=== PATIENT | male | born 1940 | race Caucasian/White ===

== ENCOUNTER 2018-02-22 07:28 | Inpatient (IN) | payer MEDICARE, OTHER ==
[~2018-02-22] VITALS: Ht 177.8 cm; Wt 82.6 kg
[~2018-02-22 07:28] MED LIST: ASPI81TA94 PO; AZIT-17 PO; CLIN-75 PO; CLIN300C99 PO; SILD50TA PO; TERB250T74 PO; TRIA15CR40 TP; [UNRECOGNIZED DRUG - CODE] PO; [UNRECOGNIZED DRUG - CODE] PO
--- NOTE | 2018-02-22 07:32 | ER Report ---
History and Physical Time Seen By MD: 07:31 HPI/ROS CHIEF COMPLAINT: Rapid Heart Rate HISTORY OF PRESENT ILLNESS: Patient is a 77-year-old male presents to the emergency department after waking up this morning with a rapid irregular heartbeat. He denies any chest pain but does admit to some shortness of breath. The patient is postop from a left knee surgery this past Saturday. He is currently on Coumadin but does not know his current INR. Patient apparently has had paroxysmal atrial fibrillation in the past. He has been seen by cardiology here in [place] but was cleared for surgery in as he was not in atrial fibrillation at that time. Patient denies any fevers or chills. He denies any abdominal pain. Reports no nausea vomiting or diarrhea. Patient denies ever requiring cardioversion in the past. REVIEW OF SYSTEMS: Constitutional: No fever, no chills. Eyes: No discharge. ENT: No sore throat. Cardiovascular: No chest pain, racing heart and palpitations Respiratory: Mild shortness of breath Gastrointestinal: No abdominal pain, no vomiting. Genitourinary: No hematuria. Musculoskeletal: No back pain. Skin: No rashes. Neurological: No headache. Allergies: Coded Allergies: Penicillins (Verified Allergy, Intermediate, UNKNOWN, 02/22/18) Home Meds Reported Medications [super joint complex] No Conflict Check, PO DAILY 02/22/18 Calcium Carbonate (CALCIUM) 500 Mg Tablet, PO DAILY 02/22/18 Biotin (BIOTIN) 1 Mg Capsule, PO DAILY 02/22/18 Cholecalciferol (Vitamin D3) (VITAMIN D3) 1,000 Unit Tablet, 1000 UNIT PO DAILY, TAB 02/22/18 Ascorbic Acid (VITAMIN C) 500 Mg Tablet, 500 MG PO, TAB 02/22/18 Warfarin Sodium (COUMADIN) 1 Mg Tablet, PO QDAY 02/22/18 Oxycodone Hcl/Acetaminophen (OXYCODONE-ACETAMINOPHEN 5-325) 1 Each Tablet, 1 EACH PO Q4H PRN for PAIN, TAB 02/22/18 Lysine HCl (l-Lysine) 1,000 Mg Tablet, 0.5 TAB PO QDAY 10/05/15 Proline (L-PROLINE) 5 Gm Crystals, 1 TAB PO QDAY 10/05/15 Aspirin (ASPIRIN) 81 Mg Tab.chew, 81 MG PO QDAY, TAB.CHEW 10/05/15 Triamcinolone Acetonide 0.1% Cr 15 Gm Tube (TRIAMCINOLONE ACETONIDE 0.1% CREAM) 15 Gm Cream..g., 15 GM TP BID, TUBE 10/05/15 Sildenafil Citrate (VIAGRA) 50 Mg Tablet, 50 MG PO 10/26/11 Discontinued Reported Medications Clindamycin Hcl (CLINDAMYCIN HCL) 150 Mg Capsule, 4 CAP PO TID PRN for SEE COMMENT, CAPSULE take 4 tabs before dentist appointment 10/05/15 Discontinued Scripts Clindamycin Hcl (CLINDAMYCIN HCL) 300 Mg Capsule, 300 MG PO TID, #21 CAPSULE Prov:MARIFER MOMIN MD 01/16/17 Past Medical/Surgical History Past medical history for CVA in 2012, past surgical history for cataract extraction, tonsillectomy, hernia repair, left arm fracture repair, right knee replacement, recent history of left knee surgery, history of paroxysmal atrial fibrillation Smoking Status: Never Smoker Constitutional Vital Sign - Last 24 Hours 02/22/18 02/22/18 02/22/18 02/22/18 07:30 07:31 07:35 07:35 Temp 98.1 Pulse 130 110 Resp 12 14 B/P (MAP) 139/88 139/88 (105) Pulse Ox 88 93 O2 Delivery Room Air O2 Flow Rate 1.0 02/22/18 02/22/18 02/22/18 02/22/18 07:40 07:45 07:50 07:55 Pulse 105 96 94 70 Resp 20 20 19 14 Pulse Ox 94 94 95 93 02/22/18 02/22/18 02/22/18 02/22/18 08:00 08:05 08:10 08:15 Pulse 73 77 78 78 Resp 8 10 12 B/P (MAP) 102/73 (83) Pulse Ox 94 94 94 92 02/22/18 02/22/18 08:20 08:25 Pulse 83 76 Resp 12 10 Pulse Ox 93 94 Physical Exam General/Constitutional: Patient is awake, alert, nontoxic and in no acute respiratory distress. Head: Normocephalic and atraumatic. Eyes: Conjunctival clear, Pupils are equal and reactive to light. Extraocular muscles are intact and symmetrical. Sclera are clear and anicteric. Ears:External canals are clear. Tympanic membranes are clear with normal landmarks and light reflex. Nares: No rhinorrhea or bleeding. Turbinates are pink and moist. Oropharyngeal: Mucous membranes are moist. There is no pharyngeal erythema or exudate. There are no palatal petechiae. Uvula is midline and symmetrical. Neck: Supple, no adenopathy. Cardiovascular: Heart is tachycardic and irregularly irregular Pulmonary: Lungs are clear to auscultation bilaterally. There are no wheezes, rales, or rhonchi. Chest rise is symmetrical Abdomen: Soft, nontender, no guarding or peritoneal signs. Extremities: No gross deformities, No peripheral cyanosis. Able to move all 4 extremities. Neuro: Alert and oriented X3, Skin: No rashes, skin is warm dry and well perfused. Medical Decision Making Data Points Result Diagram: 02/22/18 0742 02/22/18 0742 Laboratory Hematology Test 02/22/18 07:42 Red Blood Count 4.57 M/uL (4.00-5.60) Mean Corpuscular Volume 91.6 fL (80.0-96.0) Mean Corpuscular Hemoglobin 30.5 pg (26.0-33.0) Mean Corpuscular Hemoglobin Concent 33.3 g/dL (32.0-36.0) Red Cell Distribution Width 14.0 % (11.5-14.5) Mean Platelet Volume 7.9 fL (7.2-11.1) Neutrophils (%) (Auto) 52.6 % (39.4-72.5) Lymphocytes (%) (Auto) 37.5 % (17.6-49.6) Monocytes (%) (Auto) 7.9 % (4.1-12.4) Eosinophils (%) (Auto) 1.7 % (0.4-6.7) Basophils (%) (Auto) 0.3 % (0.3-1.4) Nucleated RBC Relative Count (auto) 0.1 /100WBC Neutrophils # (Auto) 6.0 K/uL (2.0-7.4) Lymphocytes # (Auto) 4.3 K/uL (1.3-3.6) Monocytes # (Auto) 0.9 K/uL (0.3-1.0) Eosinophils # (Auto) 0.2 K/uL (0.0-0.5) Basophils # (Auto) 0.0 K/uL (0.0-0.1) Nucleated RBC Absolute Count (auto) 0.01 K/uL Prothrombin Time 20.0 seconds (12.0-14.4) Prothromb Time International Ratio 1.68 Activated Partial Thromboplast Time 45 seconds (23-35) Sodium Level 138 mmol/L (137-145) Potassium Level 4.0 mmol/L (3.5-5.0) Chloride Level 99 mmol/L (98-107) Carbon Dioxide Level 28 mmol/L (22-30) Blood Urea Nitrogen 15 mg/dl (9-21) Creatinine 0.80 mg/dl (0.66-1.25) Glomerular Filtration Rate Calc > 60.0 Random Glucose 118 mg/dl (75-110) Calcium Level 9.7 mg/dl (8.4-10.2) Total Bilirubin 0.9 mg/dl (0.2-1.3) Aspartate Amino Transf (AST/SGOT) 30 U/L (0-35) Alanine Aminotransferase (ALT/SGPT) 22 U/L (0-56) Alkaline Phosphatase 73 U/L (0-126) Troponin I < 0.012 ng/ml B-Type Natriuretic Peptide 340 pg/ml (0-100) Total Protein 7.3 g/dl (6.3-8.2) Albumin 3.7 g/dl (3.5-5.0) Chemistry Test 02/22/18 07:42 White Blood Count 11.3 k/uL (4.5-11.0) Red Blood Count 4.57 M/uL (4.00-5.60) Hemoglobin 14.0 g/dL (14.0-18.0) Hematocrit 41.9 % (42.0-52.0) Mean Corpuscular Volume 91.6 fL (80.0-96.0) Mean Corpuscular Hemoglobin 30.5 pg (26.0-33.0) Mean Corpuscular Hemoglobin Concent 33.3 g/dL (32.0-36.0) Red Cell Distribution Width 14.0 % (11.5-14.5) Platelet Count 215 K/uL (150-450) Mean Platelet Volume 7.9 fL (7.2-11.1) Neutrophils (%) (Auto) 52.6 % (39.4-72.5) Lymphocytes (%) (Auto) 37.5 % (17.6-49.6) Monocytes (%) (Auto) 7.9 % (4.1-12.4) Eosinophils (%) (Auto) 1.7 % (0.4-6.7) Basophils (%) (Auto) 0.3 % (0.3-1.4) Nucleated RBC Relative Count (auto) 0.1 /100WBC Neutrophils # (Auto) 6.0 K/uL (2.0-7.4) Lymphocytes # (Auto) 4.3 K/uL (1.3-3.6) Monocytes # (Auto) 0.9 K/uL (0.3-1.0) Eosinophils # (Auto) 0.2 K/uL (0.0-0.5) Basophils # (Auto) 0.0 K/uL (0.0-0.1) Nucleated RBC Absolute Count (auto) 0.01 K/uL Prothrombin Time 20.0 seconds (12.0-14.4) Prothromb Time International Ratio 1.68 Activated Partial Thromboplast Time 45 seconds (23-35) Glomerular Filtration Rate Calc > 60.0 Calcium Level 9.7 mg/dl (8.4-10.2) Total Bilirubin 0.9 mg/dl (0.2-1.3) Aspartate Amino Transf (AST/SGOT) 30 U/L (0-35) Alanine Aminotransferase (ALT/SGPT) 22 U/L (0-56) Alkaline Phosphatase 73 U/L (0-126) Troponin I < 0.012 ng/ml B-Type Natriuretic Peptide 340 pg/ml (0-100) Total Protein 7.3 g/dl (6.3-8.2) Albumin 3.7 g/dl (3.5-5.0) Coagulation Test 02/22/18 07:42 Prothrombin Time 20.0 seconds Prothromb Time International Ratio 1.68 Activated Partial Thromboplast Time 45 seconds EKG/Imaging EKG Interpretation EKG shows atrial fibrillation with a ventricular rate of [address] segment or T-wave abnormalities are noted. Monitor Interpretation: Atrial Fibrillation Imaging FACILITY: [facility] - [place] PATIENT NAME: Steven Miller : 1940 MR: [id number] V: [id number] EXAM DATE: ORDERING PHYSICIAN: REESE DELUNA TECHNOLOGIST: Location: [facility] Patient: Steven Miller : 1940 Visit/Account:[id number] Date of Sevice: 02/22/2018 Technique: CHEST SINGLE AP HISTORY: Chest pain Comparison studies: None FINDINGS: No acute airspace consolidation. No pleural effusion. Atherosclerotic changes overlie the thoracic aorta. The cardiac silhouette is unremarkable. IMPRESSION: 1. No acute cardiopulmonary process Report Dictated By: Buddy Tiwari DO at 02/22/2018 8:16 AM Report E-Signed By: Buddy Tiwari DO at 02/22/2018 8:18 AM WSN:[email or web address] ED Course/Re-evaluation Clinical Indication for ER IV: IV Access ED Course 02/22/2018 7:42:41 am patient with parents old atrial fibrillation. Plan at this time will be to place an IV. We will bolus the patient will of diltiazem and then placed on a drip at 5 mg/h while we complete the cardiac workup. 02/22/2018 7:56:49 am patient received 20 mg of IV diltiazem and is currently on a drip at 5 mg per hour. Ventricular rate slowed to 70 bpm the monitor is still showing atrial fibrillation we'll continue to monitor 02/22/2018 8:14:03 am patient remains in atrial fibrillation with a normal rate at this time. INR comes back at 1.68. I am still awaiting troponin values. Plan at this time will be to give a 1 m/kg subcutaneous dose of Lovenox as patient is currently subtherapeutic with his anticoagulation. Decision to Disposition Date: Feb 22, 2018 Decision to Disposition Time: 08:47 Depart Departure Latest Vital Signs Vital Signs Date Time Temp Pulse Resp B/P (MAP) Pulse Ox O2 Delivery O2 Flow Rate FiO2 02/22/18 08:25 76 10 94 02/22/18 08:00 102/73 (83) 02/22/18 07:35 1.0 02/22/18 07:30 98.1 Room Air Impression: Primary Impression: PAROXYSMAL ATRIAL FIBRILLATION Condition: Condition Unchanged Disposition: Admitted from ER (to Med/surg tele under dr meza) Referrals: MARIFER MOMIN MD (PCP) REESE DELUNA MD Feb 22, 2018 07:32
[2018-02-22] MEDS ORDERED: ASPIRIN 81 MG CHEW PO ONE (07:35)
[2018-02-22] MEDS ORDERED: DILTIAZEM HCL* 100 MG ADDVIAL 100 MG in NS(*) 0.9% 100 ML ADDVANT BAG 100 ML IV SCH (07:45)
[2018-02-22] MEDS ORDERED: DILTIAZEM 5 MG/ML 5ML IVPUSH IVP ONE (07:45)
[2018-02-22 07:55] LABS: PLATELET COUNT, AUTOMATED 215 K/uL (150-450)
[2018-02-22 08:02] LABS: INR 1.68
[2018-02-22] MEDS ORDERED: CHOL10005 PO (08:05)
[2018-02-22] MEDS ORDERED: [UNRECOGNIZED DRUG - OTHER] PO (08:05)
[2018-02-22] MEDS ORDERED: ASCO-182 PO (08:05)
[2018-02-22] MEDS ORDERED: CALC500T6 PO (08:05)
[2018-02-22] MEDS ORDERED: BIOT1CAP PO (08:05)
[2018-02-22] MEDS ORDERED: OXYC-373 PO (08:05)
[2018-02-22] MEDS ORDERED: WARF1TAB56 PO (08:05)
[2018-02-22] MEDS ORDERED: ENOXAPARIN 100 MG/ML SYR SC ONE (08:15)
--- NOTE | 2018-02-22 08:22 | RADIOLOGY IMAGING REPORT ---
FACILITY: [facility] PATIENT NAME: Steven Miller : 1940 MR: [id number] V: [id number] EXAM DATE: ORDERING PHYSICIAN: REESE DELUNA TECHNOLOGIST: Location: [facility] - [place] Patient: Steven Miller : 1940 Visit/Account:[id number] Date of Sevice: 02/22/2018 Technique: CHEST SINGLE AP HISTORY: Chest pain Comparison studies: None FINDINGS: No acute airspace consolidation. No pleural effusion. Atherosclerotic changes overlie the t horacic aorta. The cardiac silhouette is unremarkable. IMPRESSION: 1. No acute cardiopulmonary process Report Dictated By: Buddy Tiwari DO at 02/22/2018 8:16 AM Report E-Signed By: Buddy Tiwari DO at 02/22/2018 8:18 AM WSN:[id number]
[2018-02-22 10:20] VITALS: BP 105/68
[2018-02-22] MEDS ORDERED: NS(*) 0.9% 1000 ML BAG 1,000 ML IV PRN (11:05)
[2018-02-22] MEDS ORDERED: NS(*) 0.9% 1000 ML BAG 1,000 ML ONE (11:13)
[2018-02-22] MEDS ORDERED: ACETAMINOPHEN 500 MG TAB PO PRN (11:25)
--- NOTE | 2018-02-22 11:51 | History & Physical ---
History of Present Illness History of Present Illness 77yo male with a h/o TIA and recent diagnosis of paroxysmal atrial fibrillation who came to the ER for a fast heart rate. On 02/18 (4 days ago) he had a TKA. He was discharged home on 02/20. During the pre-op workup he was found to be in atrial fibrillation. He saw Dr. Kaye (Cardiology), but then the patient was in a NSR. Surgery was not delayed, but the patient was to start Eliquis after surgery. The patient was started on Warfarin instead, per Ortho's preference. The patient was doing well at home, but this morning at 0400 he felt his heart "fluttering" and he felt some SOB. No chest pain/di aphoresis/nausea. In the ER, he was noted to be in atrial fibrillation with RVR. He was bolused IV diltiazem and started on a drip at 5mg/hour. Currently, the patient feels well. History Problems: (1) Status post knee replacement Status: Acute (2) Atrial fibrillation Status: Acute (3) CVA (cerebral vascular accident) Status: Chronic Home Meds Reported Medications [super joint complex] No Conflict Check, PO DAILY 02/22/18 Calcium Carbonate (CALCIUM) 500 Mg Tablet, PO DAILY 02/22/18 Biotin (BIOTIN) 1 Mg Capsule, PO DAILY 02/22/18 Cholecalciferol (Vitamin D3) (VITAMIN D3) 1,000 Unit Tablet, 1000 UNIT PO DAILY, TAB 02/22/18 Ascorbic Acid (VITAMIN C) 500 Mg Tablet, 500 MG PO, TAB 02/22/18 Warfarin Sodium (COUMADIN) 1 Mg Tablet, PO QDAY 02/22/18 Oxycodone Hcl/Acetaminophen (OXYCODONE-ACETAMINOPHEN 5-325) 1 Each Tablet, 1 EACH PO Q4H PRN for PAIN, TAB 02/22/18 Lysine HCl (l-Lysine) 1,000 Mg Tablet, 0.5 TAB PO QDAY 10/05/15 Proline (L-PROLINE) 5 Gm Crystals, 1 TAB PO QDAY 10/05/15 Aspirin (ASPIRIN) 81 Mg Tab.chew, 81 MG PO QDAY, TAB.CHEW 10/05/15 Discontinued Reported Medications Clindamycin Hcl (CLINDAMYCIN HCL) 150 Mg Capsule, 4 CAP PO TID PRN for SEE COMMENT, CAPSULE take 4 tabs before dentist appointment 10/05/15 Triamcinolone Acetonide 0.1% Cr 15 Gm Tube (TRIAMCINOLONE ACETONIDE 0.1% CREAM) 15 Gm Cream..g., 15 GM TP BID, TUBE 10/05/15 Sildenafil Citrate (VIAGRA) 50 Mg Tablet, 50 MG PO 10/26/11 Discontinued Scripts Clindamycin Hcl (CLINDAMYCIN HCL) 300 Mg Capsule, 300 MG PO TID, #21 CAPSULE Prov:MARIFER MOMIN MD 01/16/17 Allergies: Coded Allergies: Penicillins (Verified Allergy, Intermediate, UNKNOWN, 02/22/18) Other Social/Family Hx Quit smoking 40years ago. He has a 10pk yr hx. Rare alcohol use. . Hx Smoking: Yes Smoking Status: Former Smoker Exposure to Second Hand Smoke?: Yes When Quit Tobacco?: quit 45 yrs ago, 1PPD Caffeine Intake: Soda Caffeine/Cups Per Day: rarely Hx Alcohol Use: Yes (Very rarely) Alcohol Used: Beer Hx Substance Use Disorder: No Social Drug Use: Never History of IV Drug Use: No Review of Systems All Systems Reviewed/Normal: Yes, Except as Noted Exam Vital Signs Vital Signs Date Time Temp Pulse Resp B/P (MAP) Pulse Ox O2 Delivery O2 Flow Rate FiO2 02/22/18 10:20 96 Nasal Cannula 1.0 02/22/18 10:20 98.4 83 16 105/68 (80) General Appearance: Alert, Awake, No Acute Distress Eyes: PERRLA ENT: Moist Mucous Membranes (Mild erythema in post pharynx) Cardiovascular: Other (Irreg, irreg, no m/r/g) Respiratory: Clear to Auscultation GI: Abd Soft and Non-Tender Extremities: No Edema Integumentary: No Jaundice, No Cyanosis Medical Decision Making Data Points Result Diagram: 02/22/18 0742 02/22/18 0742 Item Value Date Time Total Bilirubin 0.9 mg/dl 02/22/18 0742 Aspartate Amino Transf (AST/SGOT) 30 U/L 02/22/18 0742 Alanine Aminotransferase (ALT/SGPT) 22 U/L 02/22/18 0742 Alkaline Phosphatase 73 U/L 02/22/18 0742 B-Type Natriuretic Peptide 340 pg/ml H 02/22/18 0742 Troponin I < 0.012 ng/ml 02/22/18 0742 EKG / Imaging EKG Interpretation ECG haven't been loaded onto the computer system yet. Imaging CXR - 1. No acute cardiopulmonary process Assessment and Plan Problems: (1) Atrial fibrillation Status: Acute Assessment & Plan: He presented with a few hours of feeling like his heart was going fast and mild SOB. He was found to have atrial fibrillation a couple of weeks ago by a pre-op ECG. His rate was 104 bpm and he was asymptomatic. He converted out by the time he saw Cardiology. The plan was for him to get an outpatient echo after his TKA, stroke prophylaxis medication and f/u in early April. He is now rate controlled on a diltiazem drip at 5mg/hour. Will switch to oral diltiazem 180mg a day, get an echo, check TSH and continue warfarin. He was given a 1 mg/kg dosing of Lovenox in the ER. Will switch to 40mg a day because his INR is 1.68 and concerned about bleeding risk from recent surgery. Check daily INR. (2) Status post knee replacement Status: Acute Assessment & Plan: Doing well. Surgery was on 02/18. DVT prophylaxis as above. Celebrex, APAP, and oxycodone for pain control. (3) CVA (cerebral vascular accident) Status: Chronic Assessment & Plan: Continue ASA 81mg a day. Copies to: MARNIE HDEZ MD; VALENTINA MORALES MD; DELORES KAYE MD ; Venous Thromboembolism Antithrombotics Is Pt On Any Antithrombotics?: Yes Exam Sepsis Risk: No Definite Risk Problem Qualifiers (1) Atrial fibrillation: Atrial fibrillation type: paroxysmal Qualified Codes: I48.0 - Paroxysmal atrial fibrillation PABLO KENNEDY MD Feb 22, 2018 11:51
--- NOTE | 2018-02-22 11:54 | EKG ---
FACILITY: [facility] [place] PATIENT NAME: AURORA MAURICE : [id number] MR: [id number] V: [id number] EXAM DATE: ORDERING PHYSICIAN: REESE DELUNA TECHNOLOGIST: CRISTINA Valentine Reason : CARDIAC Blood Pressure : / mmHG Vent. Rate : 146 BPM Atrial Rate : 202 BPM P-R Int : 000 ms QRS Dur : 074 ms QT Int : 278 ms P-R-T Axes : 000 047 015 degrees QTc Int : 433 ms Atrial fibrillation with rapid ventricular response Nonspecific ST abnormality Abnormal ECG No previous ECGs available Confirmed by PABLO KENNEDY ([id number]) on 02/22/2018 3:41:51 PM Referred By: MIKIE Confirmed By:PABLO KENNEDY
[2018-02-22 11:56] VITALS: BP 103/75
[2018-02-22] MEDS ORDERED: DILTIAZEM CD 180 MG CAPCR PO SCH (12:00)
[2018-02-22 12:19] VITALS: Ht 177.8 cm; Wt 82.6 kg
[2018-02-22] MEDS ORDERED: WARFARIN SOD 5 MG TAB PO SCH (13:00)
[2018-02-22] MEDS ORDERED: CHOL400T55 PO (14:36)
[2018-02-22] MEDS ORDERED: MAGN100T PO (14:36)
[2018-02-22] MEDS ORDERED: WARF-1 PO (14:36)
[2018-02-22 15:17] VITALS: BP 97/63
[2018-02-22] MEDS: oxyCODONE HCL 5 MG CAP PO PRN ×2 (15:21→23:48)
[2018-02-22] MEDS: CELECOXIB 200 MG CAP PO PRN (17:39)
[2018-02-22 19:43] VITALS: BP 110/87
[2018-02-22 23:39] VITALS: BP 108/77
[2018-02-23 04:11] VITALS: BP 123/72
[2018-02-23 05:53] LABS: INR 2.17
[2018-02-23 06:14] LABS: PLATELET COUNT, AUTOMATED 217 K/uL (150-450)
[2018-02-23] MEDS ORDERED: DILT120C18 PO (06:51)
--- NOTE | 2018-02-23 07:00 | Hospitalist Depart ---
Discharge Summary Reason for Hosp/Final Diag: (1) Atrial fibrillation Status: Acute Hospital Course & Plan: He presented with a few hours of feeling like his heart was going fast and mild SOB. He was found to have atrial fibrillation a couple of weeks ago by a pre-op ECG. His rate was 104 bpm and he was asymptomatic. He converted out by the time he saw Cardiology. The plan was for him to get an outpatient echo after his TKA, stroke prophylaxis medication and f/u in early April. He was placed on a diltiazem drip and now rate controlled on a diltiazem orally. His echo showed an EF of about 52% without any other gross abnormalities. BNP is a bit elevated, but likely related to the atrial fibrillation with RVR. However, there may be an element of pulmonary congestion related to IVF from the recent surgery. Lungs are clear by exam and CXR. TSH is pending. He is to follow up as scheduled with Cardiology and Orthopedics. Therapeutic on warfarin. INR tomorrow. He should follow up with his PCP in 1-2 weeks to check his HR and BP. (2) Status post knee replacement Status: Acute Hospital Course & Plan: Doing well. Surgery was on 02/18. DVT prophylaxis as above. Continue Percocet for pain. (3) CVA (cerebral vascular accident) Status: Chronic Hospital Course & Plan: Continue ASA 81mg a day. Departure Weight (Pounds): 182 Result Diagram: 02/23/18 0502/23/18 05 Item Value Date Time White Blood Count 11.3 k/uL H 02/22/18 0742 White Blood Count 7.8 k/uL 02/23/18 0520 Hemoglobin 14.0 g/dL 02/22/18 0742 Hemoglobin 13.2 g/dL L 02/23/18 0520 Platelet Count 215 K/uL 02/22/18 0742 Platelet Count 217 K/uL 02/23/18 0520 Prothromb Time International Ratio 1.68 02/22/18 0742 Prothromb Time International Ratio 2.17 02/23/18 0520 B-Type Natriuretic Peptide 338 pg/ml H 02/23/18 0520 B-Type Natriuretic Peptide 340 pg/ml H 02/22/18 0742 Total Bilirubin 0.9 mg/dl 02/22/18 0742 Aspartate Amino Transf (AST/SGOT) 30 U/L 02/22/18 0742 Alanine Aminotransferase (ALT/SGPT) 22 U/L 02/22/18 0742 Alkaline Phosphatase 73 U/L 02/22/18 0742 Alkaline Phosphatase 57 U/L 02/23/18 0520 Alanine Aminotransferase (ALT/SGPT) 17 U/L 02/23/18 0520 Aspartate Amino Transf (AST/SGOT) 22 U/L 02/23/18 0520 Total Bilirubin 0.6 mg/dl 02/23/18 0520 Troponin I < 0.012 ng/ml 02/23/18 0520 Troponin I < 0.012 ng/ml 02/22/18 0742 Blood Urea Nitrogen 15 mg/dl 02/22/18 0742 Creatinine 0.80 mg/dl 02/22/18 0742 Blood Urea Nitrogen 20 mg/dl 02/23/18 0520 Creatinine 0.70 mg/dl 02/23/18 0520 Imaging 02/22/18 Echo - See official results 02/22/18 CXR - 1. No acute cardiopulmonary process EKG Vent. Rate : 146 BPM Atrial Rate : 202 BPM P-R Int : 000 ms QRS Dur : 074 ms QT Int : 278 ms P-R-T Axes : 000 047 015 degrees QTc Int : 433 ms Atrial fibrillation with rapid ventricular response Nonspecific ST abnormality Abnormal ECG No previous ECGs available Confirmed by PABLO KENNEDY ([id number]) on 02/22/2018 3:41:51 PM Condition: Improved Discharge: Home Discharge Instructions Home Meds Active Scripts Magnesium Hydroxide (MILK OF MAGNESIA) 400 Mg/5 Ml Oral.susp, 400 MG PO Q8H PRN for CONSTIPATION for 1 Day, BOTTLE Prov:PABLO KENNEDY MD 02/23/18 Docusate Sodium (COLACE) 100 Mg Capsule, 100 MG PO BID for constipation for 1 Day, CAPSULE Take while on pain medication Prov:PABLO KENNEDY MD 02/23/18 Polyethylene Glycol 3350 (MIRALAX) 17 Gm Powd.pack, 17 GM PO DAILY for Constipation for 1 Day, PKT Take while on pain medication Prov:PABLO KENNEDY MD 02/23/18 Diltiazem Hcl (DILTIAZEM 24HR CD) 120 Mg Cap.er.24h, 120 MG PO QDAY, #30 Prov:PABLO KENNEDY MD 02/23/18 Reported Medications Magnesium Amino Acid Chelate (MAGNESIUM) 100 Mg Tablet, 200 MG PO DAILY 02/22/18 Warfarin Sodium (COUMADIN) 5 Mg Tablet, 5 MG PO QDAY 02/22/18 Cholecalciferol (Vitamin D3) (VITAMIN D) 400 Unit Tablet, 1 TAB PO DAILY 02/22/18 [super joint complex] 1 TAB No Conflict Check, PO DAILY 02/22/18 Calcium Carbonate (CALCIUM) 500 Mg Tablet, 1 TAB PO DAILY 02/22/18 Biotin (BIOTIN) 1 Mg Capsule, 51879 MCG PO DAILY 02/22/18 Ascorbic Acid (VITAMIN C) 500 Mg Tablet, 1000 MG PO DAILY, TAB 02/22/18 Oxycodone Hcl/Acetaminophen (OXYCODONE-ACETAMINOPHEN 5-325) 1 Each Tablet, 1 EACH PO Q4H PRN for PAIN, TAB 02/22/18 Lysine HCl (l-Lysine) Unknown Strength Tablet, PO QDAY 10/05/15 Proline (L-PROLINE) 5 Gm Crystals, 1 TAB PO QDAY 10/05/15 Aspirin (ASPIRIN) 81 Mg Tab.chew, 81 MG PO QDAY, TAB.CHEW 10/05/15 Discontinued Reported Medications Clindamycin Hcl (CLINDAMYCIN HCL) 150 Mg Capsule, 4 CAP PO TID PRN for SEE COMMENT, CAPSULE take 4 tabs before dentist appointment 10/05/15 Triamcinolone Acetonide 0.1% Cr 15 Gm Tube (TRIAMCINOLONE ACETONIDE 0.1% CREAM) 15 Gm Cream..g., 15 GM TP BID, TUBE 10/05/15 Sildenafil Citrate (VIAGRA) 50 Mg Tablet, 50 MG PO 10/26/11 Discontinued Scripts Clindamycin Hcl (CLINDAMYCIN HCL) 300 Mg Capsule, 300 MG PO TID, #21 CAPSULE Prov:MARIFER MOMIN MD 01/16/17 Diet: Regular Activity: As Tolerated Special Instructions: Get an INR on 02/24. Follow up with your PCP in 1-2 weeks to check heart rate and blood pressure Call your PCP if you are getting light headed with standing up. Follow up with Orthopedics and Cardiology as scheduled. Copies to: MARIFER MOMIN MD; MARNIE HDEZ MD; VALENTINA MORALES MD; DELORES KAYE MD ; Venous Thromboembolism Antithrombotics Is Pt On Any Antithrombotics?: Yes Problem Qualifiers (1) Atrial fibrillation: Atrial fibrillation type: paroxysmal Qualified Codes: I48.0 - Paroxysmal atrial fibrillation PABLO KENNEDY MD Feb 23, 2018 07:00
[2018-02-23] MEDS: CELECOXIB 200 MG CAP PO PRN (07:10)
[2018-02-23] MEDS ORDERED: BISACODYL 10 MG SUPP PR PRN (07:40)
[2018-02-23] MEDS ORDERED: MAGNESIUM HYDROXIDE* 30ML UDCP PO PRN (07:40)
[2018-02-23] MEDS ORDERED: MOM PO (07:47)
[2018-02-23] MEDS ORDERED: DOCU-416 PO (07:47)
[2018-02-23] MEDS ORDERED: POLY17PO25 PO (07:47)
[2018-02-23 09:00] VITALS: BP 112/74
[2018-02-23] MEDS ORDERED: ENOXAPARIN 40 MG/0.4ML SYR SC SCH (09:00)
[2018-02-23] MEDS ORDERED: ASPIRIN 81 MG CHEW CHEW SCH (09:00)
[2018-02-23] MEDS ORDERED: DOCUSATE SODIUM 100 MG CAP PO SCH (09:00)
[2018-02-23] MEDS ORDERED: DILTIAZEM CD 120 MG CAPCR PO SCH (09:00)
[2018-02-23] MEDS ORDERED: POLYETHYLENE GLYCOL 17 GM PKT PO SCH (09:00)
== END 2018-02-23 12:10 | disposition home or self-care (01) | DRG 310 ==
LOC: ER 07:54 → MED 09:07
PROVIDERS: ADMIT Internal Medicine; ATTEND Internal Medicine
DX: I48.0 Paroxysmal atrial fibrillation (principal); Z86.73 Personal history of transient ischemic attack (TIA), and cerebral infarction without residual deficits; Z96.651 Presence of right artificial knee joint; Z87.891 Personal history of nicotine dependence
CPT/HCPCS: 36415; 71045; 82040; 82247; 82310; 82374; 82435; 82565; 82947; 83880; 84075; 84132; 84155; 84295; 84443; 84450; 84460; 84484; 84520; 85025; 85610; 85730; 93005; 93306; 96365; 96366; 96372; 99285; J1650; J3490; J7050

== ENCOUNTER → 2018-02-24 | Outpatient (CLI) | payer MEDICARE, OTHER ==
[2018-02-22 12:19] VITALS: BMI 26.1
[~2018-02-24] MED LIST changes: +ASCO-182 PO; +BIOT1CAP PO; +CALC500T6 PO; +CHOL10005 PO; +CHOL400T55 PO; +DILT120C18 PO; +DOCU-416 PO; +MAGN100T PO; +MOM PO; +OXYC-373 PO; +POLY17PO25 PO; +WARF-1 PO; +WARF1TAB56 PO; +[UNRECOGNIZED DRUG - OTHER] PO
[2018-02-24 10:18] LABS: INR 2.65
== END ==
LOC: LAB 09:44
PROVIDERS: ATTEND Physician Assistant Surgical
DX: Z51.81 Encounter for therapeutic drug level monitoring (principal); Z79.01 Long term (current) use of anticoagulants; Z96.652 Presence of left artificial knee joint
CPT/HCPCS: 36415; 85610

== ENCOUNTER 2018-03-13 23:37 | Emergency (ER) | payer MEDICARE, OTHER ==
[2018-02-22 12:19] VITALS: Wt 82.6 kg
[2018-03-13 23:36] VITALS: BP 139/87
[~2018-03-13 23:37] MED LIST changes: -ENOX80DI8 SQ; -HYDR2TAB74 PO; -TRAM-420 PO
[2018-03-13] MEDS ORDERED: TRAM-420 PO (23:41)
[2018-03-13] MEDS ORDERED: EMS NS 0.9%(*) 1000 ML BAG 1,000 ML IV ONE (23:45)
--- NOTE | 2018-03-13 23:52 | ER Report ---
History and Physical Time Seen By : 23:51 HPI/ROS CHIEF COMPLAINT: knee pain HISTORY OF PRESENT ILLNESS: This is a 77 year old male. He had a knee replacement surgery about [address] Arriaga at [facility] in [place]. He has been weaning down from Oxycodone and on to Ultram recently. Has been doing okay with physical therapy, with occasional pain. He is on Warfarin for his atrial fibrillation. He had sudden onset of knee pain tonight. Rated 10 on a 1-10 scale. Nothing improves it and he did try the Ultram. Seems to be mainly on the medial side. Has radiation to his hip. No fevers noted. He and his did notice some increased redness in the knee. Allergies: Coded Allergies: Penicillins (Verified Allergy, Intermediate, UNKNOWN, 03/13/18) Home Meds Active Scripts Hydromorphone Hcl (DILAUDID) 2 Mg Tablet, 2 MG PO Q4H PRN for PAIN, #10 TAB 0 Refills Prov:RAMON ORTIZ MD 03/14/18 Enoxaparin Sodium (LOVENOX) 80 Mg/0.8 Ml Disp.syrin, 80 MG SQ BID, #10 SYR 0 Refills Prov:RAMON ORTIZ MD 03/14/18 Magnesium Hydroxide (MILK OF MAGNESIA) 400 Mg/5 Ml Oral.susp, 400 MG PO Q8H PRN for CONSTIPATION for 1 Day, BOTTLE Prov:PABLO KENNEDY MD 02/23/18 Docusate Sodium (COLACE) 100 Mg Capsule, 100 MG PO BID for constipation for 1 Day, CAPSULE Take while on pain medication Prov:PABLO KENNEDY MD 02/23/18 Polyethylene Glycol 3350 (MIRALAX) 17 Gm Powd.pack, 17 GM PO DAILY for Constipation for 1 Day, PKT Take while on pain medication Prov:PABLO KENNEDY MD 02/23/18 Diltiazem Hcl (DILTIAZEM 24HR CD) 120 Mg Cap.er.24h, 120 MG PO QDAY, #30 Prov:PABLO KENNEDY MD 02/23/18 Reported Medications Tramadol Hcl (TRAMADOL HCL) 50 Mg Tablet, 100 MG PO Q4-6H, TAB 03/13/18 Magnesium Amino Acid Chelate (MAGNESIUM) 100 Mg Tablet, 200 MG PO DAILY 02/22/18 Warfarin Sodium (COUMADIN) 5 Mg Tablet, 5 MG PO QDAY 02/22/18 Cholecalciferol (Vitamin D3) (VITAMIN D) 400 Unit Tablet, 1 TAB PO DAILY 02/22/18 [super joint complex] 1 TAB No Conflict Check, PO DAILY 02/22/18 Calcium Carbonate (CALCIUM) 500 Mg Tablet, 1 TAB PO DAILY 02/22/18 Biotin (BIOTIN) 1 Mg Capsule, 80563 MCG PO DAILY 02/22/18 Ascorbic Acid (VITAMIN C) 500 Mg Tablet, 1000 MG PO DAILY, TAB 02/22/18 Oxycodone Hcl/Acetaminophen (OXYCODONE-ACETAMINOPHEN 5-325) 1 Each Tablet, 1 EACH PO Q4H PRN for PAIN, TAB 02/22/18 Lysine HCl (l-Lysine) Unknown Strength Tablet, PO QDAY 10/05/15 Proline (L-PROLINE) 5 Gm Crystals, 1 TAB PO QDAY 10/05/15 Aspirin (ASPIRIN) 81 Mg Tab.chew, 81 MG PO QDAY, TAB.CHEW 10/05/15 Reviewed Nurses Notes: Yes Hx Smoking: Yes Smoking Status: Former Smoker Exposure to Second Hand Smoke?: Yes Hx Substance Use Disorder: No Hx Alcohol Use: Yes (Very rarely) Constitutional Vital Sign - Last 24 Hours 03/13/18 03/13/18 03/13/18 03/14/18 23:36 23:37 23:52 00:07 Temp 97.9 Pulse 55 51 57 63 Resp 16 B/P (MAP) 139/87 Pulse Ox 98 97 99 100 O2 Delivery Room Air 03/14/18 03/14/18 03/14/18 03/14/18 00:22 00:27 00:28 00:42 Pulse 76 59 57 Pulse Ox 83 89 100 O2 Flow Rate 2.0 03/14/18 03/14/18 03/14/18 03/14/18 01:12 01:27 01:42 01:57 Pulse 69 70 70 55 Pulse Ox 100 98 98 03/14/18 03/14/18 03/14/18 03/14/18 02:02 02:32 02:47 03:02 Pulse 55 58 66 56 Pulse Ox 99 100 98 99 03/14/18 03/14/18 03/14/18 03/14/18 03:07 03:22 03:37 03:52 Pulse 56 60 58 61 Pulse Ox 99 99 99 98 Intake and Output 03/13/18 03/13/18 03/14/18 15:00 23:00 07:00 Intake Total 1000 ml Balance 1000 ml Physical Exam General Appearance: The patient is alert. Severe distress due to pain. Eyes: Pupils are equal, round. No pallor, injection or icterus. ENT: Mucous membranes are moist. Respiratory: Lungs are clear to auscultation. Cardiovascular: Regular rate and rhythm. No murmurs, gallops or rubs. Normal capillary refill. Has some trace edema in the lower leg. No palpable chords. Gastrointestinal: Abdomen is soft and non tender. Nondistended. Neurological: Alert and oriented x3. Normal sensation in the left leg. Skin: Warm and dry. No rashes. Incision is intact and clean. No drainage. Slight diffuse swelling around the knee. No bruising. Skin is warm around the knee. Musculoskeletal: Very tender to palpation on the medial and posterior aspect of the knee. Pain worsens with any movement. No pain with palpation of the hip area. DIFFERENTIAL DIAGNOSIS: After history and physical exam, differential diagnosis was considered for knee pain, acute, likely due to infection, bleed, or blood clot Medical Decision Making Data Points Result Diagram: 03/14/18 0023 03/14/18 0023 Laboratory Hematology Test 03/14/18 00:23 Red Blood Count 4.14 M/uL (4.00-5.60) Mean Corpuscular Volume 90.2 fL (80.0-96.0) Mean Corpuscular Hemoglobin 29.9 pg (26.0-33.0) Mean Corpuscular Hemoglobin Concent 33.2 g/dL (32.0-36.0) Red Cell Distribution Width 14.3 % (11.5-14.5) Mean Platelet Volume 7.4 fL (7.2-11.1) Neutrophils (%) (Auto) 55.3 % (39.4-72.5) Lymphocytes (%) (Auto) 34.3 % (17.6-49.6) Monocytes (%) (Auto) 5.9 % (4.1-12.4) Eosinophils (%) (Auto) 2.7 % (0.4-6.7) Basophils (%) (Auto) 1.8 % (0.3-1.4) Nucleated RBC Relative Count (auto) 0.0 /100WBC Neutrophils # (Auto) 6.9 K/uL (2.0-7.4) Lymphocytes # (Auto) 4.3 K/uL (1.3-3.6) Monocytes # (Auto) 0.7 K/uL (0.3-1.0) Eosinophils # (Auto) 0.3 K/uL (0.0-0.5) Basophils # (Auto) 0.2 K/uL (0.0-0.1) Nucleated RBC Absolute Count (auto) 0.01 K/uL Erythrocyte Sedimentation Rate 22 mm/HOUR (0-20) Prothrombin Time 30.2 seconds (12.0-14.4) Prothromb Time International Ratio 2.81 Activated Partial Thromboplast Time 40 seconds (23-35) Sodium Level 136 mmol/L (137-145) Potassium Level 3.8 mmol/L (3.5-5.0) Chloride Level 102 mmol/L (98-107) Carbon Dioxide Level 22 mmol/L (22-30) Blood Urea Nitrogen 22 mg/dl (9-21) Creatinine 0.80 mg/dl (0.66-1.25) Glomerular Filtration Rate Calc > 60.0 Random Glucose 109 mg/dl (75-110) Calcium Level 9.0 mg/dl (8.4-10.2) Total Bilirubin 0.5 mg/dl (0.2-1.3) Aspartate Amino Transf (AST/SGOT) 25 U/L (0-35) Alanine Aminotransferase (ALT/SGPT) 29 U/L (0-56) Alkaline Phosphatase 103 U/L (0-126) C-Reactive Protein 0.8 mg/dl (<1.0) Total Protein 6.6 g/dl (6.3-8.2) Albumin 3.4 g/dl (3.5-5.0) Chemistry Test 03/14/18 00:23 White Blood Count 12.5 k/uL (4.5-11.0) Red Blood Count 4.14 M/uL (4.00-5.60) Hemoglobin 12.4 g/dL (14.0-18.0) Hematocrit 37.3 % (42.0-52.0) Mean Corpuscular Volume 90.2 fL (80.0-96.0) Mean Corpuscular Hemoglobin 29.9 pg (26.0-33.0) Mean Corpuscular Hemoglobin Concent 33.2 g/dL (32.0-36.0) Red Cell Distribution Width 14.3 % (11.5-14.5) Platelet Count 313 K/uL (150-450) Mean Platelet Volume 7.4 fL (7.2-11.1) Neutrophils (%) (Auto) 55.3 % (39.4-72.5) Lymphocytes (%) (Auto) 34.3 % (17.6-49.6) Monocytes (%) (Auto) 5.9 % (4.1-12.4) Eosinophils (%) (Auto) 2.7 % (0.4-6.7) Basophils (%) (Auto) 1.8 % (0.3-1.4) Nucleated RBC Relative Count (auto) 0.0 /100WBC Neutrophils # (Auto) 6.9 K/uL (2.0-7.4) Lymphocytes # (Auto) 4.3 K/uL (1.3-3.6) Monocytes # (Auto) 0.7 K/uL (0.3-1.0) Eosinophils # (Auto) 0.3 K/uL (0.0-0.5) Basophils # (Auto) 0.2 K/uL (0.0-0.1) Nucleated RBC Absolute Count (auto) 0.01 K/uL Erythrocyte Sedimentation Rate 22 mm/HOUR (0-20) Prothrombin Time 30.2 seconds (12.0-14.4) Prothromb Time International Ratio 2.81 Activated Partial Thromboplast Time 40 seconds (23-35) Glomerular Filtration Rate Calc > 60.0 Calcium Level 9.0 mg/dl (8.4-10.2) Total Bilirubin 0.5 mg/dl (0.2-1.3) Aspartate Amino Transf (AST/SGOT) 25 U/L (0-35) Alanine Aminotransferase (ALT/SGPT) 29 U/L (0-56) Alkaline Phosphatase 103 U/L (0-126) C-Reactive Protein 0.8 mg/dl (<1.0) Total Protein 6.6 g/dl (6.3-8.2) Albumin 3.4 g/dl (3.5-5.0) Coagulation Test 03/14/18 00:23 Prothrombin Time 30.2 seconds Prothromb Time International Ratio 2.81 Activated Partial Thromboplast Time 40 seconds EKG/Imaging Imaging VENOUS DOPP LOW LEFT EXTREMITY HISTORY: knee and hip pain ADDITIONAL HISTORY: None. COMPARISON: None. FINDINGS: Grayscale, duplex and color Doppler interrogation of the left lower extremity deep veins from common femoral vein to proximal calf was completed. Common femoral vein - Negative. Femoral vein - Negative. Deep femoral vein - Negative. Popliteal vein - there is occlusive thrombosis of the popliteal vein Visualized deep calf veins - Negative. Popliteal fossa: There is a slightly complex fluid collection posterior medial knee which measures 4.7 cm transverse by 2.9 cm AP by 7.5 cm craniocaudad Greater saphenous vein in the proximal thigh: Negative. IMPRESSION: Acute occlusive deep vein thrombosis of the popliteal vein extending to the junction with the superficial femoral vein. Slightly complex Harding's cyst. Results were called to RAMON ORTIZ at 03/14/2018 1:47 AM. Report Dictated By: Mega Finley MD at 03/14/2018 1:47 AM ED Course/Re-evaluation Clinical Indication for ER IV: Hydration, IV Access ED Course Initially treated with Dilaudid 0.5mg IV and Valium 5mg IV. The patient was extremely sedated and had oxygen desaturation after this, but improved with oxygen. Minimal pain relief and did feel nauseated. Venous ultrasound done with negative preliminary results, but then was determined to had popliteal DVT present. Had a complex fluid collection at the medial and posterior concerning for bleeding into the knee as well. His coumadin level was therapeutic with and INR of 2.81. Mild elevation of white count without left shift and a mild increase in ESR at 22 with a normal CRP. Discussed the case with Dr. Pelayo, transition specialist for Orthopedics. We provided a knee brace, using a hinged knee brace because he was unable to straiten without severe pain. Improved with ice and oral Dilaudid seemed to help better with pain without nausea or sedation and s ats were stable. We started him on Lovenox at 80 units subcutaneous injection. He will follow-up with [facility] later today. Decision to Disposition Date: Mar 14, 2018 Decision to Disposition Time: 03:06 Depart Departure Latest Vital Signs Vital Signs Date Time Temp Pulse Resp B/P (MAP) Pulse Ox O2 Delivery O2 Flow Rate FiO2 03/14/18 03:52 61 98 03/14/18 00:28 2.0 03/13/18 23:36 97.9 16 139/87 Room Air Impression: Primary Impression: DVT (deep venous thrombosis) Additional Impressions: Knee pain Status post knee replacement Condition: Improved Disposition: HOME OR SELF-CARE Referrals: MARIFER MOMIN MD (PCP) New Scripts Hydromorphone Hcl (DILAUDID) 2 Mg Tablet 2 MG PO Q4H PRN for PAIN, #10 TAB 0 Refills Prov: RAMON ORTIZ MD 03/14/18 Enoxaparin Sodium (LOVENOX) 80 Mg/0.8 Ml Disp.syrin 80 MG SQ BID, #10 SYR 0 Refills Prov: RAMON ORTIZ MD 03/14/18 Patient Instructions: Deep Venous Thrombosis (ED) Additional Instructions: Take Dilaudid 2mg tablets, 1/2 - 1 tablet every 4 hours as needed for pain. Use the knee brace and apply ice every hour as needed for pain. Call the office for Orthopedic Surgery or the [facility] this morning. They are going to get you in with one of the providers there for re-evaluation. They will help address the need for blood thinners in addition to you Coumadin. We are going to start you an injectable blood thinner called Lovenox. This will be an 80mg injection subcutaneously twice a day. Problem Qualifiers Primary Impression: DVT (deep venous thrombosis) DVT location: lower extremity Affected thrombotic vein of extremity: popliteal Chronicity: acute Laterality: left Qualified Codes: I82.432 - Acute embolism and thrombosis of left popliteal vein Additional Impressions: Knee pain Chronicity: acute Laterality: left Qualified Codes: M25.562 - Pain in left knee Status post knee replacement Laterality: left Qualified Codes: Z96.652 - Presence of left artificial knee joint RAMON ORTIZ MD Mar 13, 2018 23:52
[2018-03-14] MEDS ORDERED: DIAZEPAM 50 MG/10 ML MDV IVP ONE (00:05)
[2018-03-14] MEDS ORDERED: HYDROMORPHONE HCL 1 MG/ML SYRINGE IVP ONE (00:05)
[2018-03-14 00:32] LABS: PLATELET COUNT, AUTOMATED 313 K/uL (150-450)
[2018-03-14 00:40] LABS: INR 2.81
--- NOTE | 2018-03-14 01:56 | RADIOLOGY IMAGING REPORT ---
FACILITY: [facility] PATIENT NAME: Steven Miller : 1940 MR: [id number] V: [id number] EXAM DATE: ORDERING PHYSICIAN: RAMON ORTIZ TECHNOLOGIST: Location: [facility] Patient: Steven Miller : 1940 Visit/Account:[id number] Date of Sevice: 03/14/2018 VENOUS DOPP LOW LEFT EXTREMITY HISTORY: knee and hip pain ADDITIONAL HISTORY: None. COMPARISON: None. FINDINGS: Grayscale, duplex and color Doppler interrogation of the left lower extremity deep veins from common femoral vein to proximal calf was completed. Common femoral vein - Negative. Femoral vein - Negative. Deep femoral vein - Negative. Popliteal vein - there is occlusive thrombosis of the popliteal vein Visualized deep calf veins - Negative. Popliteal fossa: There is a slightly complex fluid collection posterior medial knee which measures 4. 7 cm transverse by 2.9 cm AP by 7.5 cm craniocaudad Greater saphenous vein in the proximal thigh: Negative. IMPRESSION: Acute occlusive deep vein thrombosis of the popliteal vein extending to the junction with the superfi cial femoral vein. Slightly complex Harding's cyst. Results were called to RAMON ORTIZ at 03/14/2018 1:47 AM. Report Dictated By: Mega Finley MD at 03/14/2018 1:47 AM Report E-Signed By: Mega Finley MD at 03/14/2018 1:52 AM WSN:[id number]
[2018-03-14] MEDS ORDERED: HYDROmorphone HCL 2 MG TAB PO ONE (02:30)
[2018-03-14] MEDS ORDERED: ENOXAPARIN 100 MG/ML SYR SC ONE (02:30)
[2018-03-14] MEDS ORDERED: HYDR2TAB74 PO (03:10)
[2018-03-14] MEDS ORDERED: ENOX80DI8 SQ (03:10)
[2018-03-14] MEDS ORDERED: HYDROmorphone 2 MG TAB TH 2 TAB/BOTTLE PO ONE (03:15)
== END 2018-03-14 04:18 | disposition home or self-care (01) ==
LOC: ER 23:55
DX: I82.432 Acute embolism and thrombosis of left popliteal vein (principal); Z96.652 Presence of left artificial knee joint; Z79.01 Long term (current) use of anticoagulants
CPT/HCPCS: 36415; 85025; 85610; 85651; 85730; 86140; 93971; 96361; 96372; 96374; 96375; 99284; A9270; J1170; J1650; J3360; 82040; 82247; 82310; 82374; 82435; 82565; 82947; 84075; 84132; 84155; 84295; 84450; 84460; 84520

== ENCOUNTER → 2018-03-13 | Outpatient (CLI) | payer MEDICARE, OTHER ==
[2018-02-22 12:19] VITALS: BMI 26.1
[~2018-03-13] MED LIST changes: +ENOX80DI8 SQ; +HYDR2TAB74 PO; +TRAM-420 PO
== END ==
LOC: AMB 23:08
PROVIDERS: ATTEND Nurse Practitioner
DX: M25.562 Pain in left knee (principal); R06.82 Tachypnea, not elsewhere classified
CPT/HCPCS: A0425; A0427

== ENCOUNTER → 2018-03-17 | Outpatient (CLI) | payer MEDICARE, OTHER ==
[2018-02-22 12:19] VITALS: BMI 26.1
[~2018-03-17] MED LIST changes: +ENOX80DI8 SQ; +HYDR2TAB74 PO; +TRAM-420 PO
[2018-03-17 14:32] LABS: INR 3.17
== END ==
LOC: LAB 13:38
PROVIDERS: ATTEND Physician Assistant Surgical
DX: Z96.652 Presence of left artificial knee joint (principal); Z79.01 Long term (current) use of anticoagulants
CPT/HCPCS: 36415; 85610

== ENCOUNTER → 2018-03-25 | Outpatient (CLI) | payer MEDICARE, OTHER ==
[2018-02-22 12:19] VITALS: BMI 26.1
[2018-03-25 13:15] LABS: INR 1.44
== END ==
LOC: LAB 12:56
PROVIDERS: ATTEND Orthopaedic Surgery Adult Reconstructive Orthopaedic Surgery
DX: Z79.01 Long term (current) use of anticoagulants (principal); M17.0 Bilateral primary osteoarthritis of knee; M16.11 Unilateral primary osteoarthritis, right hip; M16.12 Unilateral primary osteoarthritis, left hip
CPT/HCPCS: 36415; 85610

== ENCOUNTER → 2018-03-27 | Outpatient (CLI) | payer MEDICARE, OTHER ==
[2018-02-22 12:19] VITALS: BMI 26.1
[2018-03-27 15:20] LABS: INR 1.53
== END ==
LOC: LAB 14:54
PROVIDERS: ATTEND Orthopaedic Surgery Adult Reconstructive Orthopaedic Surgery
DX: Z79.01 Long term (current) use of anticoagulants (principal); M17.0 Bilateral primary osteoarthritis of knee; M16.0 Bilateral primary osteoarthritis of hip
CPT/HCPCS: 36415; 85610

== ENCOUNTER → 2018-04-14 | Outpatient (CLI) | payer MEDICARE, OTHER ==
[2018-02-22 12:19] VITALS: BMI 26.1
[2018-04-14 10:59] LABS: INR 1.83
== END ==
LOC: LAB 10:10
PROVIDERS: ATTEND Orthopaedic Surgery Adult Reconstructive Orthopaedic Surgery
DX: M17.0 Bilateral primary osteoarthritis of knee (principal); M16.0 Bilateral primary osteoarthritis of hip; Z79.01 Long term (current) use of anticoagulants
CPT/HCPCS: 36415; 85610

== ENCOUNTER → 2018-10-24 | Outpatient (CLI) | payer MEDICARE, OTHER ==
[2018-02-22 12:19] VITALS: BMI 26.1
[~2018-10-24] MED LIST changes: +DILT120C12 PO; -DILT120C18 PO; +VERA120C9 PO
[2018-10-24 07:29] LABS: INR 2.33
== END ==
LOC: LAB 07:05
PROVIDERS: ATTEND Internal Medicine
DX: Z51.81 Encounter for therapeutic drug level monitoring (principal); Z79.01 Long term (current) use of anticoagulants; I48.0 Paroxysmal atrial fibrillation
CPT/HCPCS: 36415; 85610

== ENCOUNTER → 2018-10-31 | Outpatient (CLI) | payer MEDICARE, OTHER ==
[2018-02-22 12:19] VITALS: BMI 26.1
[2018-10-31 13:08] LABS: INR 2.09
== END ==
LOC: LAB 12:14
PROVIDERS: ATTEND Internal Medicine
DX: Z51.81 Encounter for therapeutic drug level monitoring (principal); Z79.01 Long term (current) use of anticoagulants; I48.0 Paroxysmal atrial fibrillation
CPT/HCPCS: 36415; 85610

== ENCOUNTER → 2018-11-11 | Outpatient (CLI) | payer MEDICARE, OTHER ==
[2018-02-22 12:19] VITALS: BMI 26.1
[2018-11-11 07:31] LABS: INR 2.01
== END ==
LOC: LAB 07:08
PROVIDERS: ATTEND Internal Medicine
DX: Z51.81 Encounter for therapeutic drug level monitoring (principal); Z79.01 Long term (current) use of anticoagulants; I48.0 Paroxysmal atrial fibrillation
CPT/HCPCS: 36415; 85610

== ENCOUNTER → 2018-11-28 | Outpatient (CLI) | payer MEDICARE, OTHER ==
[2018-02-22 12:19] VITALS: BMI 26.1
== END ==
LOC: LAB 12:06
PROVIDERS: ATTEND Internal Medicine
DX: E78.2 Mixed hyperlipidemia (principal)
CPT/HCPCS: 36415; 82465; 83718; 84478

== ENCOUNTER → 2019-01-16 | Outpatient (CLI) | payer MEDICARE, OTHER ==
[2018-02-22 12:19] VITALS: BMI 26.1
[2019-01-16 11:12] LABS: INR 2.39
== END ==
LOC: LAB 10:16
PROVIDERS: ATTEND Internal Medicine
DX: Z51.81 Encounter for therapeutic drug level monitoring (principal); I48.0 Paroxysmal atrial fibrillation; E78.2 Mixed hyperlipidemia; Z79.01 Long term (current) use of anticoagulants
CPT/HCPCS: 36415; 85610

== ENCOUNTER → 2019-01-29 | Outpatient (CLI) | payer MEDICARE, OTHER ==
[2018-02-22 12:19] VITALS: BMI 26.1
[2019-01-29 10:56] LABS: LDL CHOLESTEROL 114 mg/dl
== END ==
LOC: LAB 09:29
PROVIDERS: ATTEND Internal Medicine
DX: Z86.73 Personal history of transient ischemic attack (TIA), and cerebral infarction without residual deficits (principal); I48.0 Paroxysmal atrial fibrillation; I10 Essential (primary) hypertension
CPT/HCPCS: 36415; 82040; 82247; 82310; 82374; 82435; 82465; 82565; 82947; 83718; 84075; 84132; 84155; 84295; 84450; 84460; 84478; 84520